=== PATIENT | male | born 1955 | race Caucasian/White ===

== ENCOUNTER 2019-10-01 18:27 | Emergency (ER) | payer SELFPAY ==
[~2019-10-01] VITALS: Ht 167.6 cm; Wt 104.5 kg
[2019-10-01 18:44] VITALS: TEMP 98.2
[2019-10-01] MEDS ORDERED: ATIVAN 0.50.5 MG/TAB PO (20:28)
[2019-10-01 21:38] VITALS: BP 190/87; PULSE 82
== END 2019-10-01 21:38 | disposition home or self-care (01) ==
LOC: COL.ER 18:27
DX: S39.012A Strain of muscle, fascia and tendon of lower back, initial encounter (principal); F31.9 Bipolar disorder, unspecified; V43.52XA Car driver injured in collision with other type car in traffic accident, initial encounter